=== PATIENT | female | born 1950 | race Caucasian/White ===

== ENCOUNTER 2018-03-14 15:19 | Inpatient (IN) | payer OTHER ==
[2018-04-02] MEDS ORDERED: SIMVASTATIN40 MG (09:54)
[2018-04-02] MEDS ORDERED: DITROPAN XL15 MG (09:54)
[2018-04-02] MEDS ORDERED: LEVOTHYROXINE125 MCG (09:55)
[2018-04-02] MEDS ORDERED: CYMBALTA60 MG (09:55)
[2018-04-02] MEDS ORDERED: ABILIFY5 MG (09:55)
[2018-04-02] MEDS ORDERED: OMEPRAZOLE40 MG (09:55)
[2018-04-02] MEDS ORDERED: HYDRALAZINE HCL50 MG (09:55)
[2018-04-02] MEDS ORDERED: CLONAZEPAM2 MG (09:56)
[2018-04-02] MEDS ORDERED: [UNRECOGNIZED DRUG - OTHER] PO (09:56)
[2018-04-02] MEDS ORDERED: METFORMIN HCL500 MG (09:56)
[2018-04-02] MEDS ORDERED: NORVASC2.5 M1 (09:57)
[2018-04-02] MEDS ORDERED: PROCARDIA PO (09:57)
[2018-04-02] MEDS ORDERED: AVAPRO150 MG (09:57)
[2018-04-02] MEDS ORDERED: TOPAMAX PO (09:57)
[2018-04-02] MEDS ORDERED: FLECAINIDE ACET50 MG (09:58)
[2018-04-02] MEDS ORDERED: DIGOXIN0.125 MG/2 (09:58)
[2018-04-02] MEDS ORDERED: ZESTRIL40 M1 (09:58)
[2018-04-04] MEDS ORDERED: PEPCID40 MG PO (09:15)
[2018-04-04] MEDS ORDERED: TOPIRAMATE100 MG PO (09:17)
[2018-04-04] MEDS ORDERED: NIFEDIPINE ER30 M1 PO (09:18)
== END 2018-04-05 18:52 | disposition home or self-care (01) | DRG 349 ==
LOC: O/R 04-03 09:06 → SURH 04-03 09:06
PROVIDERS: Colon & Rectal Surgery
PROC: 0DQR0ZZ Repair Anal Sphincter, Open Approach (ICD-10-PCS; 2018-04-03)
PROC: 0DJD8ZZ Inspection of Lower Intestinal Tract, Via Natural or Artificial Opening Endoscopic (ICD-10-PCS; 2018-04-03)
PROC: 0DBP7ZZ Excision of Rectum, Via Natural or Artificial Opening (ICD-10-PCS; principal; 2018-04-03 12:00)
DX: K62.3 Rectal prolapse (principal); R15.9 Full incontinence of feces